=== PATIENT | female | born 1980 | race African-American/Black ===

== ENCOUNTER 2018-11-24 22:45 | Emergency (ER) | payer SELFPAY ==
[~2018-11-24] VITALS: Ht 165.1 cm; Wt 79.0 kg
[2018-11-24 22:56] VITALS: BP 118/81
== END 2018-11-25 01:30 | disposition left against medical advice (07) ==
LOC: ER 22:45
DX: Z53.21 Procedure and treatment not carried out due to patient leaving prior to being seen by health care provider (principal)
CPT/HCPCS: 93005

== ENCOUNTER 2022-06-23 20:20 | Emergency (ER) | payer SELFPAY ==
[~2022-06-23] VITALS: Ht 167.6 cm; Wt 82.0 kg
[2022-06-23 20:24] VITALS: BP 115/75
[2022-06-23] MEDS ORDERED: KETOROLAC 60MG/2ML VIAL IM ONE (21:45)
[2022-06-23 22:32] LABS: BASOPHILS % 0.6 % (0.0-2.0); EOSINOPHILS % 0.8 % (0.0-5.0); HEMATOCRIT. 32.8 % (36.0-48.0); HEMOGLOBIN. 11.3 g/dL (12.0-16.0); MEAN CORPUSCULAR HEMOGLOBIN 30.2 pg (28.0-32.0); MEAN CORPUSCULAR VOLUME 87.1 fL (81.0-99.0); MEAN PLATELET VOLUME 7.1 fl (7.4-10.4); MONOCYTES % 5.4 % (2.0-8.0); NEUTROPHILS % 79.2 % (40.0-76.0); PLATELET 324 x1000/uL (130-400); RED BLOOD CELL COUNT 3.76 mill/uL (4.2-5.4); RED CELL DISTRIBUTION WIDTH 13.2 % (11.6-14.6)
[2022-06-23 22:39] LABS: CHLORIDE 105 mEq/L (98-107)
[2022-06-23 22:52] LABS: HCG SCREEN NEGATIVE
[2022-06-24] MEDS ORDERED: POLYETHYLENE GLYCOL 3350 (17GM) 1 DOSE PACK PO ONE (00:15)
== END 2022-06-24 03:44 | disposition home or self-care (01) ==
LOC: ER 20:20 → CANBEDREQ 06-24 22:34
DX: K59.00 Constipation, unspecified (principal); Z98.84 Bariatric surgery status; Z98.890 Other specified postprocedural states
CPT/HCPCS: 36415; 80053; 83690; 84703; 85025; 96372; 99283; J1885; Z7610